=== PATIENT | male | born 1990 | race Caucasian/White ===

== ENCOUNTER 2018-10-21 10:18 | Emergency (ER) | payer OTHER ==
[2018-10-21 10:24] VITALS: BP 119/80; PULSE 63; TEMP 98.2; BMI 33.4
--- NOTE | 2018-10-21 10:28 | PDOC ---
History of Present Illness - General Chief Complaint: Injury Stated Complaint: INJURY Time Seen by Provider: 10/21/18 10:24 History Source: Patient Exam Limitations: No Limitations - History of Present Illness Initial Comments: 10/21/18 10:38 States was walking with socks on, and stepped on sharp metal object on friends floor. Incurred laceration to the crease of his left fifth digit. States washed with soap and water and alcohol. And placed bacitracin ointment on area. States did not bleed much, but has become more painful. S Occurred: reports: yesterday Severity: reports: mild Pain Location: reports: lower extremity (left 3rd toe crease ) Past History - Travel Traveled outside of the country in the last 30 days: Yes Close contact w/someone who was outside of country & ill: Yes - Past Medical History Allergies/Adverse Reactions: Allergies Allergy/AdvReac Type Severity Reaction Status Date / Time No Known Allergies Allergy Verified 06/26/12 01:01 Home Medications: Ambulatory Orders NK [No Known Home Medication] 10/21/18 - Suicide/Smoking/Psychosocial Hx Smoking Status: No Smoking History: Never smoked Have you smoked in the past 12 months: No Number of Cigarettes Smoked Daily: 0 Information on smoking cessation initiated: No Hx Alcohol Use: No Drug/Substance Use Hx: No Review of Systems - Review of Systems Able to Perform ROS?: Yes Is the patient limited Japanese proficient: Yes Constitutional: Yes: See HPI. No: Symptoms Reported HEENTM: No: Symptoms Reported Musculoskeletal: Yes: Symptoms Reported Integumentary: Yes: Symptoms Reported, See HPI, Other (left 3rd toe crease ) *Physical Exam - Vital Signs Last Vital Signs Temp Pulse Resp BP Pulse Ox 98.2 F 63 16 119/80 97 10/21/18 10:21 10/21/18 10:21 10/21/18 10:21 10/21/18 10:21 10/21/18 10:21 - Physical Exam General Appearance: Yes: Nourished, Appropriately Dressed. No: Apparent Distress HEENT: positive: JOE, Normal ENT Inspection, TMs Normal, Pharynx Normal Neck: positive: Supple. negative: Tender Musculoskeletal: positive: Normal Inspection Extremity: positive: Normal Capillary Refill, Normal Inspection, Normal Range of Motion (wiht pain on flexion and extension= but intact), Other (1cm healing laceration to crease of toe. ) Integumentary: positive: Normal Color, Dry, Warm, Pale Progress Note - Progress Note Progress Note: toe laceration- old- unable to suture repair. *DC/Admit/Observation/Transfer Diagnosis at time of Disposition: Toe laceration Qualifiers: Encounter type: initial encounter Toe: lesser toe Damage to nail status: without damage Foreign body presence: unspecified Laterality: left Qualified Code(s): S91.115A - Laceration without foreign body of left lesser toe(s) without damage to nail, initial encounter - Discharge Dispostion Disposition: HOME Condition at time of disposition: Stable Decision to Admit order: No - Referrals - Patient Instructions Printed Discharge Instructions: DI for Open Laceration Additional Instructions: Rest, keep area elevated. Avoid strenuous activity or exercise until wound is healed Use hot soaks to area to bring more blood to the surface and encourage drainage May change dressings as needed to keep clean - Allow water from shower to wash area thoroughly for 2-3 minutes, and pat dry upon exit of shower and replace dressing. Change his dressing daily until the wound is completely healed. May use Tylenol or Motrin for mild pain relief Followup with private physician in 2-3 days for wound check as needed Return to emergency Department for worsening swelling, pain, redness, fevers as needed - Post Discharge Activity Forms/Work/School Notes: Back to Work
[2018-10-21] MEDS ORDERED: BACITRACIN 15 GM TUBE TOPICAL OINTMENT TP ONE (10:35)
[2018-10-21] MEDS ORDERED: BACITRACIN 15 GM TUBE TOPICAL OINTMENT ONE (10:35)
== END 2018-10-21 10:38 | disposition home or self-care (01) ==
LOC: JERFT 10:18
DX: S91.114A Laceration without foreign body of right lesser toe(s) without damage to nail, initial encounter (principal); W26.8XXA Contact with other sharp object(s), not elsewhere classified, initial encounter; Y93.01 Activity, walking, marching and hiking; Y92.038 Other place in apartment as the place of occurrence of the external cause; Y99.8 Other external cause status
CPT/HCPCS: 99281-25

== ENCOUNTER 2023-03-16 21:18 | Emergency (ER) | payer OTHER ==
[2023-03-16 21:31] VITALS: BP 132/97; PULSE 73; RESP 16; TEMP 98.7; BMI 33.5
[2023-03-16] MEDS ORDERED: DIPHTH,PERTUSS(ACELL),TET 0.5 ML DISP.SYRIN IM ONE ×2 (21:56→21:57)
== END 2023-03-16 22:02 | disposition home or self-care (01) ==
LOC: FER 21:18
PROC: 0HQ0XZZ Repair Scalp Skin, External Approach (ICD-10-PCS; principal; 2023-03-16)
PROC: 3E0234Z Introduction of Serum, Toxoid and Vaccine into Muscle, Percutaneous Approach (ICD-10-PCS; 2023-03-16)
DX: S01.01XA Laceration without foreign body of scalp, initial encounter (principal); W22.8XXA Striking against or struck by other objects, initial encounter; Y99.0 Civilian activity done for income or pay
CPT/HCPCS: 12001-25; 90471; 90715; 99282-25

== ENCOUNTER 2023-03-28 16:09 | Emergency (ER) | payer OTHER ==
[2023-03-28 16:13] VITALS: BP 119/83; PULSE 78; RESP 16; TEMP 98; BMI 33.4
== END 2023-03-28 18:13 | disposition home or self-care (01) ==
LOC: FER 16:09
DX: Z48.02 Encounter for removal of sutures (principal)
CPT/HCPCS: 99281-25